=== PATIENT | male | born 1965 | race Hispanic/Latino ===

== ENCOUNTER 2021-07-01 07:59 | Emergency (ER) | payer SELFPAY ==
[2021-07-01] MEDS ORDERED: Ketorolac Tromethamine 30 MG/ML VIAL ONE (08:30)
[2021-07-01] MEDS ORDERED: Acetaminophen 500 MG TAB ONE (08:30)
[2021-07-01 09:09] LABS: #Lymphocytes 0.7 thou/uL (1.20-3.40); #Monocytes 0.3 thou/uL (0.11-0.59); #Neutrophils 3.8 thou/uL (1.40-6.50); %Basophils 0.7 % (0.0-1.0); %Eosinophils 0.1 % (0.0-10.0); %Lymphocytes 14.6 % (21.0-51.0); %Monocytes 5.7 % (0.0-10.0); %Neutrophils 78.8 % (42.0-75.0); Hemoglobin 15.6 g/dL (14.0-18.0); Mean Corpuscular Hemoglobin 28.3 pg (27.0-31.0); Mean Corpuscular Volume 85.9 fL (78.0-98.0); Mean Platelet Volume 7.5 fL (7.4-10.4); Platelet Count 151 thou/uL (130-400); RBC Distribution Width 11.4 % (11.5-14.5); Red Blood Cell (RBC) Count 5.51 mill/uL (4.70-6.10); White Blood Cell (WBC) Count 4.9 thou/uL (4.8-10.8)
[2021-07-01 09:30] LABS: ALT (SGPT) 48 U/L (8-55); AST (SGOT) 56 U/L (5-34); Albumin 3.4 g/dL (3.5-5.0); Alkaline Phosphatase 62 U/L (40-110); Anion Gap 13 mmol/L (10-20); BUN (Urea Nitrogen) 14 mg/dL (8.4-25.7); Bilirubin, Total 0.7 mg/dL (0.2-1.2); Calc. Creatinine Clearance 0 mL/min (70-130); Calcium 8.3 mg/dL (7.8-10.44); Carbon Dioxide 24 mmol/L (22-29); Chloride 92 mmol/L (98-107); Globulin 3.7 g/dL (2.4-3.5); Glucose 285 mg/dL (70-105); Lipase 43 U/L (8-78); Potassium 3.4 mmol/L (3.5-5.1); Protein, Total 7.1 g/dL (6.0-8.3); Sodium 126 mmol/L (136-145)
[2021-07-01] MEDS ORDERED: Iopamidol-370 76% 500 ML 1 ML ONE (11:08)
== END 2021-07-01 10:50 | disposition home or self-care (01) ==
LOC: ERS 07:59
DX: U07.1 COVID-19 (principal); J12.82 Pneumonia due to coronavirus disease 2019; E11.65 Type 2 diabetes mellitus with hyperglycemia; E87.1 Hypo-osmolality and hyponatremia; Z87.891 Personal history of nicotine dependence
CPT/HCPCS: 71275; 80053; 83690; 84484; 85025; 93005; 96374; J1885; Q9967

== ENCOUNTER 2021-07-02 23:07 | Inpatient (IN) | payer SELFPAY ==
[2021-07-02] MEDS ORDERED: Ketorolac Tromethamine 30 MG/ML VIAL ONE (23:40)
[2021-07-02] MEDS ORDERED: Acetaminophen 500 MG TAB ONE (23:40)
[2021-07-02 23:54] LABS: #Basophils 0.1 thou/uL (0.0-0.2); #Monocytes 0.2 thou/uL (0.11-0.59); %Basophils 1.5 % (0.0-1.0); %Lymphocytes 18.2 % (21.0-51.0); %Monocytes 4.2 % (0.0-10.0); %Neutrophils 76.1 % (42.0-75.0); Hemoglobin 15.4 g/dL (14.0-18.0); Mean Corpuscular HGB CONC 35.2 g/dL (32.0-36.0); Mean Corpuscular Hemoglobin 29.9 pg (27.0-31.0); Mean Corpuscular Volume 85.2 fL (78.0-98.0); Mean Platelet Volume 7.6 fL (7.4-10.4); Platelet Count 163 thou/uL (130-400); RBC Distribution Width 11.5 % (11.5-14.5); Red Blood Cell (RBC) Count 5.15 mill/uL (4.70-6.10); White Blood Cell (WBC) Count 5.2 thou/uL (4.8-10.8)
[2021-07-03 00:14] LABS: ALT (SGPT) 40 U/L (8-55); AST (SGOT) 63 U/L (5-34); Albumin 3.2 g/dL (3.5-5.0); Alkaline Phosphatase 59 U/L (40-110); Anion Gap 14 mmol/L (10-20); BUN (Urea Nitrogen) 12 mg/dL (8.4-25.7); Bilirubin, Total 0.5 mg/dL (0.2-1.2); CRP (Inflammatory) 15.67 mg/dL (= or < 0.5); Calc. Creatinine Clearance 0 mL/min (70-130); Calcium 7.8 mg/dL (7.8-10.44); Carbon Dioxide 25 mmol/L (22-29); Chloride 90 mmol/L (98-107); Globulin 3.5 g/dL (2.4-3.5); Glucose 281 mg/dL (70-105); Potassium 3.7 mmol/L (3.5-5.1); Protein, Total 6.7 g/dL (6.0-8.3); Sodium 125 mmol/L (136-145)
[2021-07-03] MEDS ORDERED: Bisacodyl 5 MG TAB PO PRN (01:00)
[2021-07-03] MEDS ORDERED: hydrALAZINE 20 MG/ML VIAL SLOW IVP PRN (01:12)
[2021-07-03] MEDS ORDERED: Dextrose 5% in Water 1,000 ML IV PRN (01:12)
[2021-07-03] MEDS ORDERED: Dextrose 50% Abboject 50 ML SYRINGE SLOW IVP PRN (01:12)
[2021-07-03 01:43] LABS: Hemoglobin A1c 12.3 % (4.0-6.0)
[2021-07-03 01:59] LABS: Troponin I Less than 0.010 ng/mL (< 0.028)
[2021-07-03 05:30] LABS: ALT (SGPT) 38 U/L (8-55); AST (SGOT) 61 U/L (5-34); Albumin 3.1 g/dL (3.5-5.0); Alkaline Phosphatase 56 U/L (40-110); Anion Gap 14 mmol/L (10-20); BUN (Urea Nitrogen) 14 mg/dL (8.4-25.7); Bilirubin, Total 0.5 mg/dL (0.2-1.2); Calc. Creatinine Clearance 0 mL/min (70-130); Calcium 7.6 mg/dL (7.8-10.44); Carbon Dioxide 26 mmol/L (22-29); Chloride 90 mmol/L (98-107); Globulin 3.3 g/dL (2.4-3.5); Glucose 250 mg/dL (70-105); Potassium 3.8 mmol/L (3.5-5.1); Protein, Total 6.4 g/dL (6.0-8.3); Sodium 126 mmol/L (136-145)
[2021-07-03 05:35] LABS: Hemoglobin 14.8 g/dL (14.0-18.0); Mean Corpuscular HGB CONC 33.8 g/dL (32.0-36.0); Mean Corpuscular Hemoglobin 28.9 pg (27.0-31.0); Mean Corpuscular Volume 85.4 fL (78.0-98.0); Mean Platelet Volume 7.7 fL (7.4-10.4); Platelet Count 167 thou/uL (130-400); RBC Distribution Width 11.6 % (11.5-14.5); Red Blood Cell (RBC) Count 5.13 mill/uL (4.70-6.10); White Blood Cell (WBC) Count 5.9 thou/uL (4.8-10.8)
[2021-07-03] MEDS: Sodium Chloride 0.9% 1,000 ML IV SCH ×2 (05:43→17:07)
[2021-07-03 06:26] LABS: Band 15 % (5-11); Lymphocytes 28 % (21-51); MDiff Complete? YES; Monocytes 5 % (0-10); Neutrophil 51 % (42-75)
[2021-07-03] MEDS ORDERED: Famotidine 20 MG TAB ONE (08:53)
[2021-07-03] MEDS ORDERED: Enoxaparin Sodium 40 MG/0.4 ML SYRINGE ONE ×2 (08:53→08:54)
[2021-07-03] MEDS ORDERED: Dexamethasone 10 MG/ML VIAL ONE (08:55)
[2021-07-03] MEDS: Dexamethasone 10 MG in Sodium Chloride 0.9% 50 ML IVPB SCH (08:59)
[2021-07-03] MEDS: Famotidine 20 MG TAB PO SCH ×2 (09:00→20:51)
[2021-07-03] MEDS ORDERED: Enoxaparin Sodium 40 MG/0.4 ML SYRINGE SC SCH (09:00)
[2021-07-03] MEDS: metFORMIN 500 MG TAB PO SCH ×2 (09:22→17:07)
[2021-07-03] MEDS: Zinc Sulfate 220 MG CAP PO SCH (09:22)
[2021-07-03 15:57] LABS: Bacteria/HPF None Seen HPF (None Seen); Bilirubin Negative (Negative); Blood, Urine Negative (Negative); Clarity Clear (Clear); Glucose, Urine (Dipstick) Greater than 1000 mg/dL (Negative); Ketone, Urine 40 mg/dL (Negative); Leukocyte Negative Leu/uL (Negative); Nitrite Negative (Negative); Protein, Urine (Dipstick) 50 mg/dL (Neg-Trace); RBC/HPF 0-3 HPF (0-3); Specific Gravity, Urine 1.013 (1.002-1.036); Squamous Epithelial None Seen HPF (0-3); Urobilinogen Normal mg/dL (Less than 2); WBC/HPF 0-3 HPF (0-3); pH, Urine 6.5 (5.0-9.0)
[2021-07-03 16:26] LABS: Creatinine, Urine 57.29 mg/dL (63-166); Sodium, Urine Less than 20 mmol/L (Not Available)
[2021-07-03] MEDS: HumaLOG 300 UNITS/3 ML VIAL SC PRN ×2 (17:08→20:53)
[2021-07-03] MEDS: HYDROcodone/Acetaminophen 5/325 mg Tablet PO PRN (20:51)
[2021-07-04] MEDS: Sodium Chloride 0.9% 1,000 ML IV SCH (06:19)
[2021-07-04] MEDS: HumaLOG 300 UNITS/3 ML VIAL SC PRN ×3 (06:20→16:53)
[2021-07-04 07:29] LABS: Anion Gap 14 mmol/L (10-20); BUN (Urea Nitrogen) 15 mg/dL (8.4-25.7); Calc. Creatinine Clearance 121 mL/min (70-130); Calcium 7.7 mg/dL (7.8-10.44); Carbon Dioxide 25 mmol/L (22-29); Chloride 97 mmol/L (98-107); Glucose 265 mg/dL (70-105); Potassium 4.1 mmol/L (3.5-5.1); Sodium 132 mmol/L (136-145)
[2021-07-04] MEDS: Acetaminophen 325 MG TAB PO PRN (09:33)
[2021-07-04] MEDS: Famotidine 20 MG TAB PO SCH ×2 (09:34→20:53)
[2021-07-04] MEDS: metFORMIN 500 MG TAB PO SCH (09:34)
[2021-07-04] MEDS: Enoxaparin Sodium 40 MG/0.4 ML SYRINGE SC SCH ×2 (09:34→20:53)
[2021-07-04] MEDS: guaiFENesin/DM ER PO SCH ×2 (09:34→20:53)
[2021-07-04] MEDS: Benzonatate 100 MG CAP PO SCH ×3 (09:35→21:05)
[2021-07-04] MEDS: Zinc Sulfate 220 MG CAP PO SCH (09:35)
[2021-07-04] MEDS: Lantus 1000 UNITS/10 ML VIAL SC SCH ×2 (09:47→20:54)
[2021-07-04] MEDS: Dexamethasone 10 MG in Sodium Chloride 0.9% 50 ML IVPB SCH (10:21)
[2021-07-04] MEDS: Albuterol 200 PUFF (6.7GM INHALER) INH SCH (18:12)
[2021-07-04] MEDS: HYDROcodone/Acetaminophen 5/325 mg Tablet PO PRN (21:03)
[2021-07-05] MEDS: Albuterol 200 PUFF (6.7GM INHALER) INH SCH ×4 (01:12→17:32)
[2021-07-05] MEDS: HumaLOG 300 UNITS/3 ML VIAL SC PRN ×3 (06:00→17:07)
[2021-07-05 07:07] LABS: #Lymphocytes 1.1 thou/uL (1.20-3.40); #Monocytes 0.4 thou/uL (0.11-0.59); #Neutrophils 8.8 thou/uL (1.40-6.50); %Basophils 0.1 % (0.0-1.0); %Lymphocytes 10.5 % (21.0-51.0); %Monocytes 4.1 % (0.0-10.0); %Neutrophils 85.3 % (42.0-75.0); Hemoglobin 15.3 g/dL (14.0-18.0); Mean Corpuscular HGB CONC 34.6 g/dL (32.0-36.0); Mean Corpuscular Hemoglobin 29.9 pg (27.0-31.0); Mean Corpuscular Volume 86.3 fL (78.0-98.0); Mean Platelet Volume 7.4 fL (7.4-10.4); Platelet Count 268 thou/uL (130-400); RBC Distribution Width 11.6 % (11.5-14.5); Red Blood Cell (RBC) Count 5.12 mill/uL (4.70-6.10); White Blood Cell (WBC) Count 10.3 thou/uL (4.8-10.8)
[2021-07-05 07:16] LABS: Anion Gap 14 mmol/L (10-20); BUN (Urea Nitrogen) 15 mg/dL (8.4-25.7); Calc. Creatinine Clearance 144 mL/min (70-130); Carbon Dioxide 25 mmol/L (22-29); Chloride 97 mmol/L (98-107); Glucose 200 mg/dL (70-105); Potassium 3.9 mmol/L (3.5-5.1); Sodium 132 mmol/L (136-145)
[2021-07-05] MEDS: Dexamethasone 4 mg/ml Vial SLOW IVP SCH (07:57)
[2021-07-05] MEDS: Zinc Sulfate 220 MG CAP PO SCH (07:58)
[2021-07-05] MEDS: Acetaminophen 325 MG TAB PO PRN (07:58)
[2021-07-05] MEDS: Enoxaparin Sodium 40 MG/0.4 ML SYRINGE SC SCH ×2 (07:58→21:00)
[2021-07-05] MEDS: Famotidine 20 MG TAB PO SCH ×2 (07:59→20:59)
[2021-07-05] MEDS: guaiFENesin/DM ER PO SCH ×2 (07:59→20:59)
[2021-07-05] MEDS: Lantus 1000 UNITS/10 ML VIAL SC SCH ×2 (08:00→21:00)
[2021-07-05] MEDS: Benzonatate 100 MG CAP PO SCH ×3 (08:02→21:12)
[2021-07-05] MEDS ORDERED: BARICITINIB 2 MG TAB PO SCH (09:30)
[2021-07-05] MEDS: HYDROcodone/Acetaminophen 5/325 mg Tablet PO PRN (20:57)
[2021-07-06] MEDS: Albuterol 200 PUFF (6.7GM INHALER) INH SCH ×4 (03:00→20:55)
[2021-07-06] MEDS: HumaLOG 300 UNITS/3 ML VIAL SC PRN ×3 (07:10→17:05)
[2021-07-06] MEDS: BARICITINIB 2 MG TAB PO SCH (08:48)
[2021-07-06] MEDS: Enoxaparin Sodium 40 MG/0.4 ML SYRINGE SC SCH ×2 (08:48→20:54)
[2021-07-06] MEDS: Dexamethasone 4 mg/ml Vial SLOW IVP SCH (08:49)
[2021-07-06] MEDS: Famotidine 20 MG TAB PO SCH ×2 (08:49→20:53)
[2021-07-06] MEDS: Zinc Sulfate 220 MG CAP PO SCH (08:49)
[2021-07-06] MEDS: guaiFENesin/DM ER PO SCH ×2 (08:49→20:54)
[2021-07-06] MEDS: Lantus 1000 UNITS/10 ML VIAL SC SCH ×2 (08:50→20:54)
[2021-07-06] MEDS: Benzonatate 100 MG CAP PO SCH ×3 (11:08→21:08)
[2021-07-07] MEDS: Albuterol 200 PUFF (6.7GM INHALER) INH SCH ×4 (01:55→18:28)
[2021-07-07 05:57] LABS: #Lymphocytes 1.1 thou/uL (1.20-3.40); #Monocytes 0.5 thou/uL (0.11-0.59); #Neutrophils 11.5 thou/uL (1.40-6.50); %Lymphocytes 8.3 % (21.0-51.0); %Monocytes 3.7 % (0.0-10.0); %Neutrophils 87.9 % (42.0-75.0); Hemoglobin 15.6 g/dL (14.0-18.0); Mean Corpuscular HGB CONC 33.8 g/dL (32.0-36.0); Mean Corpuscular Volume 85.8 fL (78.0-98.0); Mean Platelet Volume 7.1 fL (7.4-10.4); Platelet Count 415 thou/uL (130-400); RBC Distribution Width 11.7 % (11.5-14.5); Red Blood Cell (RBC) Count 5.39 mill/uL (4.70-6.10); White Blood Cell (WBC) Count 13.1 thou/uL (4.8-10.8)
[2021-07-07 06:19] LABS: Anion Gap 16 mmol/L (10-20); BUN (Urea Nitrogen) 17 mg/dL (8.4-25.7); Calc. Creatinine Clearance 138 mL/min (70-130); Calcium 8.2 mg/dL (7.8-10.44); Carbon Dioxide 21 mmol/L (22-29); Chloride 99 mmol/L (98-107); Glucose 171 mg/dL (70-105); Potassium 4.1 mmol/L (3.5-5.1); Sodium 132 mmol/L (136-145)
[2021-07-07] MEDS: Famotidine 20 MG TAB PO SCH ×2 (08:50→20:18)
[2021-07-07] MEDS: BARICITINIB 2 MG TAB PO SCH (08:51)
[2021-07-07] MEDS: Benzonatate 100 MG CAP PO SCH ×3 (08:51→20:19)
[2021-07-07] MEDS: guaiFENesin/DM ER PO SCH ×2 (08:52→20:19)
[2021-07-07] MEDS: Dexamethasone 4 mg/ml Vial SLOW IVP SCH (08:52)
[2021-07-07] MEDS: Lantus 1000 UNITS/10 ML VIAL SC SCH ×2 (08:53→20:20)
[2021-07-07] MEDS: Zinc Sulfate 220 MG CAP PO SCH (08:55)
[2021-07-07] MEDS: Enoxaparin Sodium 40 MG/0.4 ML SYRINGE SC SCH ×2 (08:56→20:19)
[2021-07-07 08:59] LABS: Actual Bicarbonate (HCO3a) 22.9 mEq/L (22-28); Base Excess (BEa) 2.5 mEq/L (-2.0 to +3.0); Calcium, Ionized (arterial) 1.07 mmol/L (1.12-1.30); Carboxyhemoglobin (COHb) 0.3 gm% (0.0-3.0); Hemoglobin (Hb) 15.7 g/dL (14.0-18.0); O2 Tension (PaO2), arterial 65.2 mmHg (80.0-100.0); Potassium - ABG Lab 3.54 mmol/L (3.70-5.30)
[2021-07-07 09:04] LABS: ALV-art Gradient 615.675 mmHg (0-20); CO2 Tension 25.7 mmHg (35.0-45.0); Puncture Site RRA; pH, Arterial 7.57 (7.35-7.45)
[2021-07-07] MEDS: Acetaminophen 325 MG TAB PO PRN ×2 (14:42→20:40)
[2021-07-07] MEDS: HYDROcodone/Acetaminophen 5/325 mg Tablet PO PRN (17:33)
[2021-07-07] MEDS: HumaLOG 300 UNITS/3 ML VIAL SC PRN ×2 (17:34→20:28)
[2021-07-08] MEDS ORDERED: Chloraseptic Spray 180 ml Bottle PO PRN (00:05)
[2021-07-08] MEDS: Albuterol 200 PUFF (6.7GM INHALER) INH SCH ×4 (00:15→17:10)
[2021-07-08] MEDS: HYDROcodone/Acetaminophen 5/325 mg Tablet PO PRN (00:16)
[2021-07-08 04:16] LABS: Anion Gap 13 mmol/L (10-20); BUN (Urea Nitrogen) 15 mg/dL (8.4-25.7); Calc. Creatinine Clearance 139 mL/min (70-130); Calcium 8.3 mg/dL (7.8-10.44); Carbon Dioxide 24 mmol/L (22-29); Chloride 98 mmol/L (98-107); Glucose 98 mg/dL (70-105); Sodium 131 mmol/L (136-145)
[2021-07-08 04:34] LABS: #Lymphocytes 1.2 thou/uL (1.20-3.40); #Monocytes 0.1 thou/uL (0.11-0.59); #Neutrophils 9.7 thou/uL (1.40-6.50); %Basophils 0.1 % (0.0-1.0); %Eosinophils 0.2 % (0.0-10.0); %Lymphocytes 10.6 % (21.0-51.0); %Monocytes 1.2 % (0.0-10.0); %Neutrophils 87.9 % (42.0-75.0); Hemoglobin 14.9 g/dL (14.0-18.0); Mean Corpuscular HGB CONC 33.6 g/dL (32.0-36.0); Mean Corpuscular Volume 86.4 fL (78.0-98.0); Mean Platelet Volume 6.8 fL (7.4-10.4); Platelet Count 372 thou/uL (130-400); RBC Distribution Width 11.7 % (11.5-14.5); Red Blood Cell (RBC) Count 5.12 mill/uL (4.70-6.10)
[2021-07-08] MEDS: Famotidine 20 MG TAB PO SCH ×2 (08:49→21:25)
[2021-07-08] MEDS: BARICITINIB 2 MG TAB PO SCH (08:49)
[2021-07-08] MEDS: Zinc Sulfate 220 MG CAP PO SCH (08:49)
[2021-07-08] MEDS: guaiFENesin/DM ER PO SCH ×2 (08:50→21:25)
[2021-07-08] MEDS: Benzonatate 100 MG CAP PO SCH ×3 (08:50→21:25)
[2021-07-08] MEDS: Acetaminophen 325 MG TAB PO PRN ×2 (08:50→16:52)
[2021-07-08] MEDS: Lantus 1000 UNITS/10 ML VIAL SC SCH ×2 (08:54→21:26)
[2021-07-08] MEDS: Enoxaparin Sodium 40 MG/0.4 ML SYRINGE SC SCH ×2 (08:55→21:25)
[2021-07-08] MEDS: Dexamethasone 4 mg/ml Vial SLOW IVP SCH (08:56)
[2021-07-08] MEDS: HumaLOG 300 UNITS/3 ML VIAL SC PRN ×2 (17:10→21:28)
[2021-07-09] MEDS: Albuterol 200 PUFF (6.7GM INHALER) INH SCH ×4 (01:30→19:50)
[2021-07-09] MEDS: Zinc Sulfate 220 MG CAP PO SCH (09:50)
[2021-07-09] MEDS: guaiFENesin/DM ER PO SCH ×2 (09:50→20:39)
[2021-07-09] MEDS: BARICITINIB 2 MG TAB PO SCH (09:50)
[2021-07-09] MEDS: Enoxaparin Sodium 40 MG/0.4 ML SYRINGE SC SCH ×2 (09:50→20:39)
[2021-07-09] MEDS: Dexamethasone 4 mg/ml Vial SLOW IVP SCH (09:50)
[2021-07-09] MEDS: Famotidine 20 MG TAB PO SCH ×2 (09:50→20:38)
[2021-07-09] MEDS: Benzonatate 100 MG CAP PO SCH ×3 (09:50→20:38)
[2021-07-09] MEDS: Lantus 1000 UNITS/10 ML VIAL SC SCH ×2 (09:51→20:41)
[2021-07-09] MEDS: HYDROcodone/Acetaminophen 5/325 mg Tablet PO PRN ×2 (10:17→15:25)
[2021-07-09] MEDS: HumaLOG 300 UNITS/3 ML VIAL SC PRN ×2 (18:12→20:42)
[2021-07-10] MEDS: Albuterol 200 PUFF (6.7GM INHALER) INH SCH ×4 (01:10→19:50)
[2021-07-10 04:20] LABS: #Lymphocytes 0.8 thou/uL (1.20-3.40); #Monocytes 0.4 thou/uL (0.11-0.59); #Neutrophils 10.8 thou/uL (1.40-6.50); %Basophils 0.1 % (0.0-1.0); %Eosinophils 0.1 % (0.0-10.0); %Lymphocytes 6.6 % (21.0-51.0); %Monocytes 2.9 % (0.0-10.0); %Neutrophils 90.3 % (42.0-75.0); Hemoglobin 14.8 g/dL (14.0-18.0); Mean Corpuscular HGB CONC 33.9 g/dL (32.0-36.0); Mean Corpuscular Hemoglobin 29.4 pg (27.0-31.0); Mean Corpuscular Volume 86.6 fL (78.0-98.0); Mean Platelet Volume 6.9 fL (7.4-10.4); Platelet Count 395 thou/uL (130-400); RBC Distribution Width 11.8 % (11.5-14.5); Red Blood Cell (RBC) Count 5.04 mill/uL (4.70-6.10)
[2021-07-10 04:42] LABS: ALT (SGPT) 26 U/L (8-55); AST (SGOT) 25 U/L (5-34); Albumin 2.9 g/dL (3.5-5.0); Alkaline Phosphatase 85 U/L (40-110); Anion Gap 16 mmol/L (10-20); BUN (Urea Nitrogen) 19 mg/dL (8.4-25.7); Bilirubin, Total 0.6 mg/dL (0.2-1.2); Calc. Creatinine Clearance 121 mL/min (70-130); Calcium 8.3 mg/dL (7.8-10.44); Carbon Dioxide 22 mmol/L (22-29); Chloride 95 mmol/L (98-107); Globulin 3.8 g/dL (2.4-3.5); Glucose 240 mg/dL (70-105); Potassium 4.5 mmol/L (3.5-5.1); Protein, Total 6.7 g/dL (6.0-8.3); Sodium 128 mmol/L (136-145)
[2021-07-10] MEDS: HumaLOG 300 UNITS/3 ML VIAL SC PRN ×4 (06:03→20:56)
[2021-07-10] MEDS: HYDROcodone/Acetaminophen 5/325 mg Tablet PO PRN ×3 (06:12→22:31)
[2021-07-10] MEDS: BARICITINIB 2 MG TAB PO SCH (09:13)
[2021-07-10] MEDS: Dexamethasone 4 mg/ml Vial SLOW IVP SCH (09:13)
[2021-07-10] MEDS: Enoxaparin Sodium 40 MG/0.4 ML SYRINGE SC SCH ×2 (09:13→20:36)
[2021-07-10] MEDS: Zinc Sulfate 220 MG CAP PO SCH (09:14)
[2021-07-10] MEDS: Benzonatate 100 MG CAP PO SCH ×2 (09:14→14:29)
[2021-07-10] MEDS: Famotidine 20 MG TAB PO SCH ×2 (09:14→20:36)
[2021-07-10] MEDS: Lantus 1000 UNITS/10 ML VIAL SC SCH ×2 (09:14→20:40)
[2021-07-10] MEDS: guaiFENesin/DM ER PO SCH (09:15)
[2021-07-10] MEDS ORDERED: Morphine IR 10 MG/5 ML UDCUP PO PRN (17:42)
[2021-07-10] MEDS: guaiFENesin/Codeine 200 mg/20 mg 10 ml Cup PO PRN (20:36)
[2021-07-11] MEDS: Albuterol 200 PUFF (6.7GM INHALER) INH SCH ×4 (01:00→20:00)
[2021-07-11 04:04] LABS: #Monocytes 0.4 thou/uL (0.11-0.59); #Neutrophils 15.7 thou/uL (1.40-6.50); %Eosinophils 0.1 % (0.0-10.0); %Lymphocytes 5.6 % (21.0-51.0); %Monocytes 2.3 % (0.0-10.0); Hemoglobin 14.6 g/dL (14.0-18.0); Mean Corpuscular HGB CONC 33.2 g/dL (32.0-36.0); Mean Corpuscular Hemoglobin 28.8 pg (27.0-31.0); Mean Corpuscular Volume 86.6 fL (78.0-98.0); Mean Platelet Volume 6.8 fL (7.4-10.4); Platelet Count 420 thou/uL (130-400); RBC Distribution Width 11.8 % (11.5-14.5); Red Blood Cell (RBC) Count 5.08 mill/uL (4.70-6.10)
[2021-07-11 04:28] LABS: ALT (SGPT) 24 U/L (8-55); AST (SGOT) 24 U/L (5-34); Albumin 2.9 g/dL (3.5-5.0); Alkaline Phosphatase 98 U/L (40-110); Anion Gap 13 mmol/L (10-20); BUN (Urea Nitrogen) 16 mg/dL (8.4-25.7); Bilirubin, Total 0.5 mg/dL (0.2-1.2); Calc. Creatinine Clearance 129 mL/min (70-130); Calcium 8.4 mg/dL (7.8-10.44); Carbon Dioxide 25 mmol/L (22-29); Chloride 94 mmol/L (98-107); Globulin 3.8 g/dL (2.4-3.5); Glucose 226 mg/dL (70-105); Potassium 4.5 mmol/L (3.5-5.1); Protein, Total 6.7 g/dL (6.0-8.3); Sodium 127 mmol/L (136-145)
[2021-07-11] MEDS: HYDROcodone/Acetaminophen 5/325 mg Tablet PO PRN ×2 (05:14→15:13)
[2021-07-11] MEDS: HumaLOG 300 UNITS/3 ML VIAL SC PRN ×3 (06:13→22:21)
[2021-07-11] MEDS ORDERED: Metoprolol Tartrate 5 MG/5 ML VIAL ONE (10:26)
[2021-07-11 10:36] LABS: Actual Bicarbonate (HCO3a) 25.5 mEq/L (22-28); Base Excess (BEa) 3.3 mEq/L (-2.0 to +3.0); CO2 Tension 32.2 mmHg (35.0-45.0); Calcium, Ionized (arterial) 1.12 mmol/L (1.12-1.30); Carboxyhemoglobin (COHb) 0.3 gm% (0.0-3.0); Hemoglobin (Hb) 16.1 g/dL (14.0-18.0); Potassium - ABG Lab 3.77 mmol/L (3.70-5.30); pH, Arterial 7.52 (7.35-7.45)
[2021-07-11 10:39] LABS: O2 Tension (PaO2), arterial 41.1 mmHg (80.0-100.0); Puncture Site RRA
[2021-07-11] MEDS: BARICITINIB 2 MG TAB PO SCH (10:50)
[2021-07-11] MEDS: Dexamethasone 4 mg/ml Vial SLOW IVP SCH (10:50)
[2021-07-11] MEDS: Zinc Sulfate 220 MG CAP PO SCH (10:50)
[2021-07-11] MEDS: Famotidine 20 MG TAB PO SCH ×2 (10:50→22:18)
[2021-07-11] MEDS: Lantus 1000 UNITS/10 ML VIAL SC SCH (10:51)
[2021-07-11] MEDS: Enoxaparin Sodium 40 MG/0.4 ML SYRINGE SC SCH ×2 (10:51→22:17)
[2021-07-11] MEDS: Acetaminophen 325 MG TAB PO PRN (11:27)
[2021-07-11] MEDS ORDERED: Piperacillin/Tazobactam 3.375 GM in Sodium Chloride 0.9% 100 ML IVPB SCH ×2 (11:45→13:15)
[2021-07-11] MEDS ORDERED: Metoprolol Tartrate 25 MG TAB PO SCH (12:00)
[2021-07-11] MEDS: Acetaminophen 325 MG TAB PO SCH ×2 (13:25→18:13)
[2021-07-11] MEDS ORDERED: Vancomycin 1.5 GRAM/300 ML BAG 1.5 GM in Premix Bag 1 BAG IVPB SCH (14:00)
[2021-07-11] MEDS: Piperacillin/Tazobactam 3.375 GM in Sodium Chloride 0.9% 100 ML IVPB SCH (18:14)
[2021-07-11 19:11] LABS: Bacteria/HPF None Seen HPF (None Seen); Bilirubin Negative (Negative); Blood, Urine Negative (Negative); Clarity Clear (Clear); Glucose, Urine (Dipstick) Greater than 1000 mg/dL (Negative); Ketone, Urine Trace mg/dL (Negative); Leukocyte Negative Leu/uL (Negative); Nitrite Negative (Negative); Protein, Urine (Dipstick) 20 mg/dL (Neg-Trace); RBC/HPF None Seen HPF (0-3); Specific Gravity, Urine 1.024 (1.002-1.036); Squamous Epithelial None Seen HPF (0-3); Urobilinogen Normal mg/dL (Less than 2); WBC/HPF 0-3 HPF (0-3)
[2021-07-11] MEDS ORDERED: Lantus 1000 UNITS/10 ML VIAL SC SCH (21:00)
[2021-07-11] MEDS: Metoprolol Tartrate 25 MG TAB PO SCH (22:18)
[2021-07-12] MEDS: Acetaminophen 325 MG TAB PO SCH ×4 (00:47→18:06)
[2021-07-12] MEDS: Albuterol 200 PUFF (6.7GM INHALER) INH SCH ×3 (00:57→19:30)
[2021-07-12] MEDS: Piperacillin/Tazobactam 3.375 GM in Sodium Chloride 0.9% 100 ML IVPB SCH ×3 (01:15→18:05)
[2021-07-12] MEDS: Vancomycin HCl 1.5 GM in Sodium Chloride 0.9% 250 ML 300 ML IVPB SCH ×2 (01:15→14:43)
[2021-07-12 04:35] LABS: #Lymphocytes 0.8 thou/uL (1.20-3.40); #Monocytes 0.3 thou/uL (0.11-0.59); #Neutrophils 16.9 thou/uL (1.40-6.50); %Eosinophils 0.1 % (0.0-10.0); %Lymphocytes 4.3 % (21.0-51.0); %Monocytes 1.6 % (0.0-10.0); %Neutrophils 93.9 % (42.0-75.0); Hemoglobin 14.6 g/dL (14.0-18.0); Mean Corpuscular HGB CONC 33.2 g/dL (32.0-36.0); Mean Corpuscular Hemoglobin 29.1 pg (27.0-31.0); Mean Corpuscular Volume 87.5 fL (78.0-98.0); Mean Platelet Volume 6.7 fL (7.4-10.4); Platelet Count 344 thou/uL (130-400); RBC Distribution Width 11.9 % (11.5-14.5); Red Blood Cell (RBC) Count 5.02 mill/uL (4.70-6.10)
[2021-07-12 04:53] LABS: ALT (SGPT) 26 U/L (8-55); AST (SGOT) 27 U/L (5-34); Albumin 2.7 g/dL (3.5-5.0); Alkaline Phosphatase 111 U/L (40-110); Anion Gap 17 mmol/L (10-20); BUN (Urea Nitrogen) 20 mg/dL (8.4-25.7); Bilirubin, Total 0.4 mg/dL (0.2-1.2); Calc. Creatinine Clearance 121 mL/min (70-130); Calcium 7.9 mg/dL (7.8-10.44); Carbon Dioxide 20 mmol/L (22-29); Chloride 96 mmol/L (98-107); Globulin 3.6 g/dL (2.4-3.5); Glucose 307 mg/dL (70-105); Potassium 4.8 mmol/L (3.5-5.1); Protein, Total 6.3 g/dL (6.0-8.3); Sodium 128 mmol/L (136-145)
[2021-07-12] MEDS: HYDROcodone/Acetaminophen 5/325 mg Tablet PO PRN (05:09)
[2021-07-12] MEDS: HumaLOG 300 UNITS/3 ML VIAL SC PRN ×4 (06:02→20:53)
[2021-07-12] MEDS ORDERED: Lantus 1000 UNITS/10 ML VIAL SC SCH (09:00)
[2021-07-12] MEDS: Enoxaparin Sodium 40 MG/0.4 ML SYRINGE SC SCH ×2 (10:02→20:29)
[2021-07-12] MEDS: Metoprolol Tartrate 25 MG TAB PO SCH ×2 (10:02→20:29)
[2021-07-12] MEDS: BARICITINIB 2 MG TAB PO SCH (10:02)
[2021-07-12] MEDS: Zinc Sulfate 220 MG CAP PO SCH (10:02)
[2021-07-12] MEDS: Famotidine 20 MG TAB PO SCH ×2 (10:03→20:29)
[2021-07-12] MEDS: Dexamethasone 4 mg/ml Vial SLOW IVP SCH (10:03)
[2021-07-12] MEDS ORDERED: Vancomycin 1.5 GRAM/300 ML BAG 1.5 GM in Premix Bag 1 BAG IVPB SCH (16:00)
[2021-07-12] MEDS: Lantus 1000 UNITS/10 ML VIAL SC SCH (20:52)
[2021-07-12] MEDS: guaiFENesin/Codeine 200 mg/20 mg 10 ml Cup PO PRN (20:56)
[2021-07-13] MEDS: Acetaminophen 325 MG TAB PO SCH ×3 (00:09→10:52)
[2021-07-13] MEDS: Albuterol 200 PUFF (6.7GM INHALER) INH SCH ×4 (00:15→19:30)
[2021-07-13] MEDS ORDERED: Vancomycin 1.5 GRAM/300 ML BAG 1.5 GM in Premix Bag 1 BAG IVPB SCH (02:00)
[2021-07-13 02:11] LABS: Vancomycin, Trough 6.4 ug/mL
[2021-07-13] MEDS: Piperacillin/Tazobactam 3.375 GM in Sodium Chloride 0.9% 100 ML IVPB SCH ×3 (02:32→17:47)
[2021-07-13] MEDS: Vancomycin 1.5 GRAM/300 ML BAG 1.5 GM in Premix Bag 1 BAG IVPB SCH ×3 (03:31→20:33)
[2021-07-13] MEDS: guaiFENesin/Codeine 200 mg/20 mg 10 ml Cup PO PRN (03:51)
[2021-07-13 04:34] LABS: ALT (SGPT) 24 U/L (8-55); AST (SGOT) 27 U/L (5-34); Albumin 2.8 g/dL (3.5-5.0); Alkaline Phosphatase 118 U/L (40-110); Anion Gap 14 mmol/L (10-20); BUN (Urea Nitrogen) 18 mg/dL (8.4-25.7); Bilirubin, Total 0.5 mg/dL (0.2-1.2); Calc. Creatinine Clearance 133 mL/min (70-130); Calcium 8.2 mg/dL (7.8-10.44); Carbon Dioxide 26 mmol/L (22-29); Chloride 97 mmol/L (98-107); Globulin 3.6 g/dL (2.4-3.5); Glucose 185 mg/dL (70-105); Potassium 4.5 mmol/L (3.5-5.1); Protein, Total 6.4 g/dL (6.0-8.3); Sodium 132 mmol/L (136-145)
[2021-07-13 04:42] LABS: Lymphocytes 21 % (21-51); MDiff Complete? YES; Mean Corpuscular HGB CONC 32.3 g/dL (32.0-36.0); Mean Corpuscular Hemoglobin 28.4 pg (27.0-31.0); Mean Platelet Volume 7.1 fL (7.4-10.4); Monocytes 2 % (0-10); Neutrophil 77 % (42-75); Platelet Count 359 thou/uL (130-400); Platelet Morphology Comment Appears Adequate; RBC Distribution Width 12.1 % (11.5-14.5); RBC Morphology Normal; Red Blood Cell (RBC) Count 5.27 mill/uL (4.70-6.10); White Blood Cell (WBC) Count 23.5 thou/uL (4.8-10.8)
[2021-07-13] MEDS: HumaLOG 300 UNITS/3 ML VIAL SC PRN ×3 (05:59→20:45)
[2021-07-13] MEDS: Dexamethasone 4 mg/ml Vial SLOW IVP SCH (10:42)
[2021-07-13] MEDS: BARICITINIB 2 MG TAB PO SCH (10:42)
[2021-07-13] MEDS: Lantus 1000 UNITS/10 ML VIAL SC SCH ×2 (10:43→20:44)
[2021-07-13] MEDS: Famotidine 20 MG TAB PO SCH ×2 (10:43→20:32)
[2021-07-13] MEDS: Zinc Sulfate 220 MG CAP PO SCH (10:44)
[2021-07-13] MEDS ORDERED: Metoprolol Tartrate 25 MG TAB PO SCH (10:45)
[2021-07-13] MEDS: guaiFENesin/Codeine 200 mg/20 mg 10 ml Cup PO SCH ×2 (10:53→17:47)
[2021-07-13] MEDS: Enoxaparin Sodium 40 MG/0.4 ML SYRINGE SC SCH (10:54)
[2021-07-13] MEDS: Metoprolol Tartrate 25 MG TAB PO SCH ×2 (10:54→20:32)
[2021-07-13] MEDS: Enoxaparin Sodium 80 MG/0.8 ML SYRINGE SC SCH (20:32)
[2021-07-14] MEDS: guaiFENesin/Codeine 200 mg/20 mg 10 ml Cup PO SCH ×4 (00:16→17:34)
[2021-07-14] MEDS: Albuterol 200 PUFF (6.7GM INHALER) INH SCH ×4 (00:31→18:28)
[2021-07-14] MEDS: Piperacillin/Tazobactam 3.375 GM in Sodium Chloride 0.9% 100 ML IVPB SCH ×3 (01:53→17:35)
[2021-07-14 04:00] LABS: #Lymphocytes 0.9 thou/uL (1.20-3.40); #Monocytes 0.4 thou/uL (0.11-0.59); #Neutrophils 19.4 thou/uL (1.40-6.50); %Basophils 0.2 % (0.0-1.0); %Eosinophils 0.1 % (0.0-10.0); %Lymphocytes 4.5 % (21.0-51.0); %Monocytes 1.9 % (0.0-10.0); %Neutrophils 93.4 % (42.0-75.0); Hemoglobin 15.3 g/dL (14.0-18.0); Mean Corpuscular HGB CONC 33.8 g/dL (32.0-36.0); Mean Corpuscular Volume 88.8 fL (78.0-98.0); Mean Platelet Volume 6.9 fL (7.4-10.4); Platelet Count 387 thou/uL (130-400); RBC Distribution Width 12.3 % (11.5-14.5); Red Blood Cell (RBC) Count 5.09 mill/uL (4.70-6.10); White Blood Cell (WBC) Count 20.8 thou/uL (4.8-10.8)
[2021-07-14 04:15] LABS: Vancomycin, Trough 13.9 ug/mL
[2021-07-14 04:21] LABS: ALT (SGPT) 23 U/L (8-55); AST (SGOT) 24 U/L (5-34); Albumin 2.8 g/dL (3.5-5.0); Alkaline Phosphatase 106 U/L (40-110); Anion Gap 11 mmol/L (10-20); BUN (Urea Nitrogen) 18 mg/dL (8.4-25.7); Bilirubin, Total 0.5 mg/dL (0.2-1.2); Calc. Creatinine Clearance 140 mL/min (70-130); Calcium 8.2 mg/dL (7.8-10.44); Carbon Dioxide 25 mmol/L (22-29); Chloride 100 mmol/L (98-107); Globulin 3.6 g/dL (2.4-3.5); Glucose 150 mg/dL (70-105); Potassium 4.3 mmol/L (3.5-5.1); Protein, Total 6.4 g/dL (6.0-8.3); Sodium 132 mmol/L (136-145)
[2021-07-14] MEDS: Vancomycin 1.5 GRAM/300 ML BAG 1.5 GM in Premix Bag 1 BAG IVPB SCH ×3 (04:28→20:46)
[2021-07-14] MEDS: HYDROcodone/Acetaminophen 5/325 mg Tablet PO PRN (04:40)
[2021-07-14] MEDS: HumaLOG 300 UNITS/3 ML VIAL SC PRN ×3 (06:19→20:57)
[2021-07-14] MEDS: Dexamethasone 4 mg/ml Vial SLOW IVP SCH (09:55)
[2021-07-14] MEDS: Enoxaparin Sodium 80 MG/0.8 ML SYRINGE SC SCH ×2 (09:55→20:46)
[2021-07-14] MEDS: BARICITINIB 2 MG TAB PO SCH (09:55)
[2021-07-14] MEDS: Famotidine 20 MG TAB PO SCH ×2 (09:56→20:47)
[2021-07-14] MEDS: Metoprolol Tartrate 25 MG TAB PO SCH ×2 (09:57→20:47)
[2021-07-14] MEDS: Zinc Sulfate 220 MG CAP PO SCH (09:57)
[2021-07-14] MEDS: Lantus 1000 UNITS/10 ML VIAL SC SCH ×2 (09:57→20:57)
[2021-07-14] MEDS ORDERED: Transdermal Patch Removal TOP SCH (21:00)
[2021-07-15] MEDS: guaiFENesin/Codeine 200 mg/20 mg 10 ml Cup PO SCH ×3 (01:26→12:50)
[2021-07-15] MEDS: Piperacillin/Tazobactam 3.375 GM in Sodium Chloride 0.9% 100 ML IVPB SCH ×3 (01:26→17:30)
[2021-07-15] MEDS: Albuterol 200 PUFF (6.7GM INHALER) INH SCH ×4 (01:33→18:42)
[2021-07-15] MEDS: Vancomycin 1.5 GRAM/300 ML BAG 1.5 GM in Premix Bag 1 BAG IVPB SCH ×3 (04:08→20:00)
[2021-07-15 04:22] LABS: ALT (SGPT) 30 U/L (8-55); AST (SGOT) 29 U/L (5-34); Albumin 2.9 g/dL (3.5-5.0); Alkaline Phosphatase 112 U/L (40-110); Anion Gap 13 mmol/L (10-20); BUN (Urea Nitrogen) 16 mg/dL (8.4-25.7); Bilirubin, Total 0.7 mg/dL (0.2-1.2); Calc. Creatinine Clearance 146 mL/min (70-130); Calcium 8.3 mg/dL (7.8-10.44); Carbon Dioxide 25 mmol/L (22-29); Chloride 100 mmol/L (98-107); Globulin 3.7 g/dL (2.4-3.5); Glucose 99 mg/dL (70-105); Potassium 4.2 mmol/L (3.5-5.1); Protein, Total 6.6 g/dL (6.0-8.3); Sodium 134 mmol/L (136-145)
[2021-07-15 04:26] LABS: Vancomycin, Trough 15.3 ug/mL
[2021-07-15 05:10] LABS: #Lymphocytes 1.4 thou/uL (1.20-3.40); #Monocytes 0.6 thou/uL (0.11-0.59); #Neutrophils 18.8 thou/uL (1.40-6.50); %Basophils 0.1 % (0.0-1.0); %Eosinophils 0.1 % (0.0-10.0); %Lymphocytes 6.7 % (21.0-51.0); %Neutrophils 90.1 % (42.0-75.0); Hemoglobin 15.1 g/dL (14.0-18.0); Mean Corpuscular HGB CONC 32.3 g/dL (32.0-36.0); Mean Corpuscular Hemoglobin 28.7 pg (27.0-31.0); Mean Corpuscular Volume 88.7 fL (78.0-98.0); Mean Platelet Volume 6.9 fL (7.4-10.4); Platelet Count 456 thou/uL (130-400); RBC Distribution Width 12.3 % (11.5-14.5); Red Blood Cell (RBC) Count 5.25 mill/uL (4.70-6.10); White Blood Cell (WBC) Count 20.9 thou/uL (4.8-10.8)
[2021-07-15 05:11] LABS: Platelet Morphology Comment Appears Increased
[2021-07-15] MEDS: Dexamethasone 4 mg/ml Vial SLOW IVP SCH (09:10)
[2021-07-15] MEDS: HYDROcodone/Acetaminophen 5/325 mg Tablet PO PRN (09:10)
[2021-07-15] MEDS: BARICITINIB 2 MG TAB PO SCH (09:10)
[2021-07-15] MEDS: Famotidine 20 MG TAB PO SCH ×2 (09:11→20:04)
[2021-07-15] MEDS: Enoxaparin Sodium 80 MG/0.8 ML SYRINGE SC SCH ×2 (09:11→20:04)
[2021-07-15] MEDS: Metoprolol Tartrate 25 MG TAB PO SCH ×2 (09:11→20:04)
[2021-07-15] MEDS: Zinc Sulfate 220 MG CAP PO SCH (09:11)
[2021-07-15] MEDS: Lidocaine 5% Patch TD SCH (09:12)
[2021-07-15] MEDS: Lantus 1000 UNITS/10 ML VIAL SC SCH ×2 (09:12→20:11)
[2021-07-15] MEDS: HumaLOG 300 UNITS/3 ML VIAL SC PRN ×3 (12:46→20:11)
[2021-07-15] MEDS: Benzonatate 100 MG CAP PO PRN (20:05)
[2021-07-16] MEDS: guaiFENesin/Codeine 200 mg/20 mg 10 ml Cup PO PRN ×2 (00:53→20:07)
[2021-07-16] MEDS: Albuterol 200 PUFF (6.7GM INHALER) INH SCH ×4 (00:59→19:30)
[2021-07-16] MEDS: Piperacillin/Tazobactam 3.375 GM in Sodium Chloride 0.9% 100 ML IVPB SCH ×3 (02:47→18:34)
[2021-07-16 04:30] LABS: Vancomycin, Trough 15.4 ug/mL
[2021-07-16] MEDS: Vancomycin 1.5 GRAM/300 ML BAG 1.5 GM in Premix Bag 1 BAG IVPB SCH ×3 (04:37→20:17)
[2021-07-16] MEDS: BARICITINIB 2 MG TAB PO SCH (08:22)
[2021-07-16] MEDS: Dexamethasone 4 mg/ml Vial SLOW IVP SCH (08:22)
[2021-07-16] MEDS: Famotidine 20 MG TAB PO SCH ×2 (08:23→20:08)
[2021-07-16] MEDS: Lidocaine 5% Patch TD SCH (08:23)
[2021-07-16] MEDS: Enoxaparin Sodium 80 MG/0.8 ML SYRINGE SC SCH ×2 (08:23→20:18)
[2021-07-16] MEDS: Zinc Sulfate 220 MG CAP PO SCH (08:24)
[2021-07-16] MEDS: Metoprolol Tartrate 25 MG TAB PO SCH ×2 (08:26→20:08)
[2021-07-16] MEDS: Lantus 1000 UNITS/10 ML VIAL SC SCH ×2 (08:27→20:22)
[2021-07-16] MEDS: Acetaminophen 325 MG TAB PO PRN (08:33)
[2021-07-16] MEDS: HumaLOG 300 UNITS/3 ML VIAL SC PRN ×2 (18:34→20:24)
[2021-07-17] MEDS: Benzonatate 100 MG CAP PO PRN (01:21)
[2021-07-17] MEDS: Piperacillin/Tazobactam 3.375 GM in Sodium Chloride 0.9% 100 ML IVPB SCH ×3 (01:30→17:57)
[2021-07-17] MEDS: Albuterol 200 PUFF (6.7GM INHALER) INH SCH ×4 (01:30→20:34)
[2021-07-17] MEDS: guaiFENesin/Codeine 200 mg/20 mg 10 ml Cup PO PRN ×3 (02:31→22:39)
[2021-07-17 03:37] LABS: Vancomycin, Trough 19.2 ug/mL
[2021-07-17] MEDS: Vancomycin 1.5 GRAM/300 ML BAG 1.5 GM in Premix Bag 1 BAG IVPB SCH ×3 (03:57→20:35)
[2021-07-17] MEDS: HYDROcodone/Acetaminophen 5/325 mg Tablet PO PRN (06:09)
[2021-07-17] MEDS: BARICITINIB 2 MG TAB PO SCH (09:33)
[2021-07-17] MEDS: Dexamethasone 4 mg/ml Vial SLOW IVP SCH (09:34)
[2021-07-17] MEDS: Enoxaparin Sodium 80 MG/0.8 ML SYRINGE SC SCH ×2 (09:34→20:39)
[2021-07-17] MEDS: Lantus 1000 UNITS/10 ML VIAL SC SCH ×2 (09:34→20:48)
[2021-07-17] MEDS: Famotidine 20 MG TAB PO SCH ×2 (09:34→20:40)
[2021-07-17] MEDS: Metoprolol Tartrate 25 MG TAB PO SCH ×2 (09:35→20:40)
[2021-07-17] MEDS: Zinc Sulfate 220 MG CAP PO SCH (09:35)
[2021-07-17] MEDS: Lidocaine 5% Patch TD SCH (09:35)
[2021-07-17] MEDS: Acetaminophen 325 MG TAB PO PRN (15:24)
[2021-07-17] MEDS: HumaLOG 300 UNITS/3 ML VIAL SC PRN (20:48)
[2021-07-18] MEDS: Piperacillin/Tazobactam 3.375 GM in Sodium Chloride 0.9% 100 ML IVPB SCH ×3 (02:35→17:52)
[2021-07-18] MEDS: Albuterol 200 PUFF (6.7GM INHALER) INH SCH ×5 (03:00→21:53)
[2021-07-18 04:40] LABS: #Lymphocytes 1.6 thou/uL (1.20-3.40); #Monocytes 0.7 thou/uL (0.11-0.59); #Neutrophils 12.8 thou/uL (1.40-6.50); %Basophils 0.3 % (0.0-1.0); %Eosinophils 0.2 % (0.0-10.0); %Lymphocytes 10.6 % (21.0-51.0); %Monocytes 4.4 % (0.0-10.0); %Neutrophils 84.5 % (42.0-75.0); Hemoglobin 15.7 g/dL (14.0-18.0); Mean Corpuscular HGB CONC 31.3 g/dL (32.0-36.0); Mean Corpuscular Hemoglobin 28.2 pg (27.0-31.0); Mean Corpuscular Volume 90.1 fL (78.0-98.0); Mean Platelet Volume 6.7 fL (7.4-10.4); Platelet Count 493 thou/uL (130-400); RBC Distribution Width 12.8 % (11.5-14.5); Red Blood Cell (RBC) Count 5.57 mill/uL (4.70-6.10); White Blood Cell (WBC) Count 15.2 thou/uL (4.8-10.8)
[2021-07-18 04:45] LABS: Anion Gap 13 mmol/L (10-20); BUN (Urea Nitrogen) 17 mg/dL (8.4-25.7); Calc. Creatinine Clearance 141 mL/min (70-130); Calcium 8.6 mg/dL (7.8-10.44); Carbon Dioxide 24 mmol/L (22-29); Chloride 100 mmol/L (98-107); Glucose 133 mg/dL (70-105); Potassium 4.3 mmol/L (3.5-5.1); Sodium 133 mmol/L (136-145)
[2021-07-18] MEDS: Vancomycin 1.5 GRAM/300 ML BAG 1.5 GM in Premix Bag 1 BAG IVPB SCH ×3 (04:51→21:10)
[2021-07-18] MEDS: guaiFENesin/Codeine 200 mg/20 mg 10 ml Cup PO PRN ×3 (04:56→23:35)
[2021-07-18] MEDS: BARICITINIB 2 MG TAB PO SCH (08:00)
[2021-07-18] MEDS: HYDROcodone/Acetaminophen 5/325 mg Tablet PO PRN ×2 (08:01→15:45)
[2021-07-18] MEDS: Dexamethasone 4 mg/ml Vial SLOW IVP SCH (08:01)
[2021-07-18] MEDS: Enoxaparin Sodium 80 MG/0.8 ML SYRINGE SC SCH (08:02)
[2021-07-18] MEDS: Famotidine 20 MG TAB PO SCH ×2 (08:02→22:17)
[2021-07-18] MEDS: Zinc Sulfate 220 MG CAP PO SCH (08:02)
[2021-07-18] MEDS: Lantus 1000 UNITS/10 ML VIAL SC SCH ×2 (08:02→22:16)
[2021-07-18] MEDS: Metoprolol Tartrate 25 MG TAB PO SCH ×2 (08:02→22:22)
[2021-07-18] MEDS: Lidocaine 5% Patch TD SCH (08:02)
[2021-07-18] MEDS ORDERED: Metoprolol Tartrate 25 MG TAB PO SCH (10:00)
[2021-07-18] MEDS: Benzonatate 100 MG CAP PO PRN (10:31)
[2021-07-18] MEDS: HumaLOG 300 UNITS/3 ML VIAL SC PRN (17:52)
[2021-07-19] MEDS: Piperacillin/Tazobactam 3.375 GM in Sodium Chloride 0.9% 100 ML IVPB SCH ×2 (01:51→09:45)
[2021-07-19] MEDS: Vancomycin 1.5 GRAM/300 ML BAG 1.5 GM in Premix Bag 1 BAG IVPB SCH (04:06)
[2021-07-19] MEDS: HYDROcodone/Acetaminophen 5/325 mg Tablet PO PRN ×3 (04:18→20:55)
[2021-07-19] MEDS: Albuterol 200 PUFF (6.7GM INHALER) INH SCH ×3 (07:15→20:57)
[2021-07-19] MEDS: Dexamethasone 4 mg/ml Vial SLOW IVP SCH (09:43)
[2021-07-19] MEDS: Metoprolol Tartrate 25 MG TAB PO SCH ×2 (09:44→20:55)
[2021-07-19] MEDS: Enoxaparin Sodium 40 MG/0.4 ML SYRINGE SC SCH (09:44)
[2021-07-19] MEDS: Famotidine 20 MG TAB PO SCH ×2 (09:44→20:55)
[2021-07-19] MEDS: Lidocaine 5% Patch TD SCH (09:44)
[2021-07-19] MEDS: Zinc Sulfate 220 MG CAP PO SCH (09:45)
[2021-07-19] MEDS: Acetaminophen 325 MG TAB PO PRN (09:45)
[2021-07-19] MEDS: Lantus 1000 UNITS/10 ML VIAL SC SCH ×2 (09:51→20:58)
[2021-07-19] MEDS: guaiFENesin/Codeine 200 mg/20 mg 10 ml Cup PO PRN (13:29)
[2021-07-19] MEDS: HumaLOG 300 UNITS/3 ML VIAL SC PRN (17:49)
[2021-07-19] MEDS: Polyethylene Glycol 3350 17 GM Packet PO SCH (20:56)
[2021-07-20] MEDS: Albuterol 200 PUFF (6.7GM INHALER) INH SCH ×4 (02:33→21:21)
[2021-07-20 04:43] LABS: Anion Gap 13 mmol/L (10-20); BUN (Urea Nitrogen) 23 mg/dL (8.4-25.7); Calc. Creatinine Clearance 152 mL/min (70-130); Calcium 8.8 mg/dL (7.8-10.44); Carbon Dioxide 24 mmol/L (22-29); Chloride 102 mmol/L (98-107); Glucose 79 mg/dL (70-105); Potassium 3.9 mmol/L (3.5-5.1); Sodium 135 mmol/L (136-145)
[2021-07-20 04:47] LABS: #Eosinphils 0.1 thou/uL (0.0-0.7); #Lymphocytes 2.3 thou/uL (1.20-3.40); #Monocytes 0.8 thou/uL (0.11-0.59); #Neutrophils 12.6 thou/uL (1.40-6.50); %Basophils 0.2 % (0.0-1.0); %Eosinophils 0.5 % (0.0-10.0); %Lymphocytes 14.3 % (21.0-51.0); %Monocytes 5.1 % (0.0-10.0); %Neutrophils 79.9 % (42.0-75.0); Hemoglobin 15.7 g/dL (14.0-18.0); Mean Corpuscular Hemoglobin 28.5 pg (27.0-31.0); Mean Corpuscular Volume 89.2 fL (78.0-98.0); Mean Platelet Volume 6.6 fL (7.4-10.4); Platelet Count 512 thou/uL (130-400); RBC Distribution Width 13.1 % (11.5-14.5); White Blood Cell (WBC) Count 15.8 thou/uL (4.8-10.8)
[2021-07-20] MEDS: Lantus 1000 UNITS/10 ML VIAL SC SCH ×2 (08:24→21:24)
[2021-07-20] MEDS: Polyethylene Glycol 3350 17 GM Packet PO SCH ×2 (08:34→21:22)
[2021-07-20] MEDS: Zinc Sulfate 220 MG CAP PO SCH (08:34)
[2021-07-20] MEDS: ALPRAZolam 0.25 MG TAB PO PRN ×2 (08:34→21:21)
[2021-07-20] MEDS: Enoxaparin Sodium 40 MG/0.4 ML SYRINGE SC SCH (08:34)
[2021-07-20] MEDS: Metoprolol Tartrate 25 MG TAB PO SCH ×2 (08:34→21:21)
[2021-07-20] MEDS: Famotidine 20 MG TAB PO SCH ×2 (08:34→21:21)
[2021-07-20] MEDS: Dexamethasone 4 mg/ml Vial SLOW IVP SCH (08:34)
[2021-07-20] MEDS: Lidocaine 5% Patch TD SCH (08:35)
[2021-07-20] MEDS: HumaLOG 300 UNITS/3 ML VIAL SC PRN (17:31)
[2021-07-20] MEDS: Benzonatate 100 MG CAP PO PRN (21:21)
[2021-07-21] MEDS: Albuterol 200 PUFF (6.7GM INHALER) INH SCH ×4 (02:36→19:04)
[2021-07-21] MEDS: Lantus 1000 UNITS/10 ML VIAL SC SCH ×2 (08:09→21:08)
[2021-07-21] MEDS: Famotidine 20 MG TAB PO SCH ×2 (08:14→21:06)
[2021-07-21] MEDS: ALPRAZolam 0.25 MG TAB PO PRN (08:15)
[2021-07-21] MEDS: Enoxaparin Sodium 40 MG/0.4 ML SYRINGE SC SCH (08:15)
[2021-07-21] MEDS: Metoprolol Tartrate 25 MG TAB PO SCH ×2 (08:15→21:06)
[2021-07-21] MEDS: Zinc Sulfate 220 MG CAP PO SCH (08:15)
[2021-07-21] MEDS: Dexamethasone 4 mg/ml Vial SLOW IVP SCH (08:15)
[2021-07-21] MEDS: Lidocaine 5% Patch TD SCH (08:15)
[2021-07-21] MEDS: Polyethylene Glycol 3350 17 GM Packet PO SCH ×3 (08:16→21:06)
[2021-07-21] MEDS: HumaLOG 300 UNITS/3 ML VIAL SC PRN ×2 (11:34→17:23)
[2021-07-21] MEDS: HYDROcodone/Acetaminophen 5/325 mg Tablet PO PRN (17:29)
[2021-07-22] MEDS: Albuterol 200 PUFF (6.7GM INHALER) INH SCH ×4 (02:24→17:57)
[2021-07-22 04:08] LABS: #Eosinphils 0.1 thou/uL (0.0-0.7); #Lymphocytes 1.6 thou/uL (1.20-3.40); #Monocytes 0.7 thou/uL (0.11-0.59); #Neutrophils 13.8 thou/uL (1.40-6.50); %Basophils 0.2 % (0.0-1.0); %Eosinophils 0.7 % (0.0-10.0); %Monocytes 4.1 % (0.0-10.0); %Neutrophils 84.9 % (42.0-75.0); Hemoglobin 15.1 g/dL (14.0-18.0); Mean Corpuscular Hemoglobin 28.4 pg (27.0-31.0); Mean Platelet Volume 6.6 fL (7.4-10.4); Platelet Count 449 thou/uL (130-400); RBC Distribution Width 13.2 % (11.5-14.5); Red Blood Cell (RBC) Count 5.32 mill/uL (4.70-6.10); White Blood Cell (WBC) Count 16.3 thou/uL (4.8-10.8)
[2021-07-22 04:31] LABS: Anion Gap 12 mmol/L (10-20); BUN (Urea Nitrogen) 36 mg/dL (8.4-25.7); Calc. Creatinine Clearance 123 mL/min (70-130); Calcium 8.9 mg/dL (7.8-10.44); Carbon Dioxide 27 mmol/L (22-29); Chloride 103 mmol/L (98-107); Glucose 173 mg/dL (70-105); Potassium 4.1 mmol/L (3.5-5.1); Sodium 138 mmol/L (136-145)
[2021-07-22] MEDS: Dexamethasone 4 mg/ml Vial SLOW IVP SCH (07:51)
[2021-07-22] MEDS: Metoprolol Tartrate 25 MG TAB PO SCH ×2 (07:52→21:20)
[2021-07-22] MEDS: ALPRAZolam 0.25 MG TAB PO PRN (07:52)
[2021-07-22] MEDS: Zinc Sulfate 220 MG CAP PO SCH (07:52)
[2021-07-22] MEDS: Famotidine 20 MG TAB PO SCH ×2 (07:52→21:18)
[2021-07-22] MEDS: Enoxaparin Sodium 40 MG/0.4 ML SYRINGE SC SCH (07:52)
[2021-07-22] MEDS: Polyethylene Glycol 3350 17 GM Packet PO SCH (07:53)
[2021-07-22] MEDS: Lidocaine 5% Patch TD SCH (07:53)
[2021-07-22] MEDS: Lantus 1000 UNITS/10 ML VIAL SC SCH ×2 (07:56→21:20)
[2021-07-22] MEDS ORDERED: Mag-Al Plus 1200 MG/1200 MG/120 MG/30 ML UDCUP PO PRN (08:44)
[2021-07-22] MEDS: HumaLOG 300 UNITS/3 ML VIAL SC PRN ×3 (11:53→21:35)
[2021-07-22] MEDS: HYDROcodone/Acetaminophen 5/325 mg Tablet PO PRN (11:55)
[2021-07-22] MEDS ORDERED: Polyethylene Glycol 3350 17 GM Packet PO PRN (14:55)
[2021-07-22] MEDS: Benzonatate 100 MG CAP PO PRN (17:44)
[2021-07-22] MEDS: guaiFENesin/Codeine 200 mg/20 mg 10 ml Cup PO PRN (17:44)
[2021-07-23] MEDS: Albuterol 200 PUFF (6.7GM INHALER) INH SCH ×4 (00:07→19:14)
[2021-07-23] MEDS: Enoxaparin Sodium 40 MG/0.4 ML SYRINGE SC SCH (08:59)
[2021-07-23] MEDS: Metoprolol Tartrate 25 MG TAB PO SCH ×2 (09:00→20:09)
[2021-07-23] MEDS: Famotidine 20 MG TAB PO SCH ×2 (09:00→20:09)
[2021-07-23] MEDS: Dexamethasone 4 mg/ml Vial SLOW IVP SCH (09:00)
[2021-07-23] MEDS: Zinc Sulfate 220 MG CAP PO SCH (09:00)
[2021-07-23] MEDS: Lantus 1000 UNITS/10 ML VIAL SC SCH ×2 (09:02→21:00)
[2021-07-23] MEDS: Lidocaine 5% Patch TD SCH (09:03)
[2021-07-23] MEDS: HumaLOG 300 UNITS/3 ML VIAL SC PRN (16:30)
[2021-07-23] MEDS: HYDROcodone/Acetaminophen 5/325 mg Tablet PO PRN (20:09)
[2021-07-24] MEDS: Albuterol 200 PUFF (6.7GM INHALER) INH SCH ×4 (04:18→18:28)
[2021-07-24] MEDS: Enoxaparin Sodium 40 MG/0.4 ML SYRINGE SC SCH (08:19)
[2021-07-24] MEDS: Lantus 1000 UNITS/10 ML VIAL SC SCH ×2 (08:20→21:22)
[2021-07-24] MEDS: Dexamethasone 4 mg/ml Vial SLOW IVP SCH (08:20)
[2021-07-24] MEDS: Famotidine 20 MG TAB PO SCH ×2 (08:20→21:21)
[2021-07-24] MEDS: Zinc Sulfate 220 MG CAP PO SCH (08:21)
[2021-07-24] MEDS: Metoprolol Tartrate 25 MG TAB PO SCH ×2 (08:21→21:21)
[2021-07-24] MEDS: Lidocaine 5% Patch TD SCH (08:21)
[2021-07-24] MEDS: Acetaminophen 325 MG TAB PO PRN ×2 (08:21→16:59)
[2021-07-24] MEDS: HumaLOG 300 UNITS/3 ML VIAL SC PRN ×2 (11:53→16:59)
[2021-07-24] MEDS: Transdermal Patch Removal TOP SCH (21:20)
[2021-07-25] MEDS: Albuterol 200 PUFF (6.7GM INHALER) INH SCH ×4 (01:08→21:00)
[2021-07-25] MEDS ORDERED: Morphine 4 MG/ML VIAL ONE (08:44)
[2021-07-25] MEDS ORDERED: Morphine 2 MG/ML VIAL SLOW IVP SCH (08:45)
[2021-07-25] MEDS ORDERED: Lorazepam 2 MG/ML VIAL ONE (08:58)
[2021-07-25] MEDS ORDERED: Lorazepam 2 MG/ML VIAL SLOW IVP SCH (09:15)
[2021-07-25 09:54] LABS: Actual Bicarbonate (HCO3a) 28.1 mEq/L (22-28); Base Excess (BEa) 2.8 mEq/L (-2.0 to +3.0); CO2 Tension 45.2 mmHg (35.0-45.0); Calcium, Ionized (arterial) 1.21 mmol/L (1.12-1.30); Carboxyhemoglobin (COHb) 0.9 gm% (0.0-3.0); Hemoglobin (Hb) 16.9 g/dL (14.0-18.0); O2 Tension (PaO2), arterial 44.5 mmHg (80.0-100.0); Potassium - ABG Lab 3.79 mmol/L (3.70-5.30); Puncture Site RRA; pH, Arterial 7.41 (7.35-7.45)
[2021-07-25] MEDS: Enoxaparin Sodium 40 MG/0.4 ML SYRINGE SC SCH (11:03)
[2021-07-25] MEDS: Lidocaine 5% Patch TD SCH (11:04)
[2021-07-25] MEDS: Dexamethasone 4 mg/ml Vial SLOW IVP SCH (11:04)
[2021-07-25] MEDS: Zinc Sulfate 220 MG CAP PO SCH (11:04)
[2021-07-25] MEDS: Famotidine 20 MG TAB PO SCH ×2 (11:04→21:05)
[2021-07-25] MEDS: Metoprolol Tartrate 25 MG TAB PO SCH ×2 (11:04→21:06)
[2021-07-25] MEDS: Lantus 1000 UNITS/10 ML VIAL SC SCH ×2 (11:07→21:05)
[2021-07-25 12:04] LABS: Hemoglobin 16.9 g/dL (14.0-18.0); Mean Corpuscular HGB CONC 31.2 g/dL (32.0-36.0); Mean Corpuscular Hemoglobin 27.9 pg (27.0-31.0); Mean Corpuscular Volume 89.4 fL (78.0-98.0); Mean Platelet Volume 7.9 fL (7.4-10.4); Platelet Count 344 thou/uL (130-400); RBC Distribution Width 13.7 % (11.5-14.5); Red Blood Cell (RBC) Count 6.04 mill/uL (4.70-6.10)
[2021-07-25 12:22] LABS: ALT (SGPT) 76 U/L (8-55); AST (SGOT) 46 U/L (5-34); Albumin 3.4 g/dL (3.5-5.0); Alkaline Phosphatase 119 U/L (40-110); Bilirubin, Direct 0.3 mg/dL (0.1-0.3); Bilirubin, Total 0.8 mg/dL (0.2-1.2); Protein, Total 7.5 g/dL (6.0-8.3)
[2021-07-25 12:28] LABS: Sodium 140 mmol/L (136-145)
[2021-07-25 12:29] LABS: Anion Gap 15 mmol/L (10-20); BUN (Urea Nitrogen) 30 mg/dL (8.4-25.7); CRP (Inflammatory) 1.32 mg/dL (= or < 0.5); Calc. Creatinine Clearance 111 mL/min (70-130); Calcium 9.2 mg/dL (7.8-10.44); Carbon Dioxide 28 mmol/L (22-29); Chloride 101 mmol/L (98-107); Glucose 124 mg/dL (70-105); Potassium 4.4 mmol/L (3.5-5.1)
[2021-07-25 12:33] LABS: Band 5 % (5-11); Lymphocytes 6 % (21-51); MDiff Complete? YES; Monocytes 7 % (0-10); Neutrophil 82 % (42-75); Platelet Morphology Comment Appears Adequate; RBC Morphology Normal
[2021-07-25] MEDS: HumaLOG 300 UNITS/3 ML VIAL SC PRN (21:05)
[2021-07-25] MEDS: Transdermal Patch Removal TOP SCH (21:07)
[2021-07-26] MEDS: Albuterol 200 PUFF (6.7GM INHALER) INH SCH ×5 (00:33→23:04)
[2021-07-26] MEDS ORDERED: Ketorolac Tromethamine 30 MG/ML VIAL IVP SCH (10:00)
[2021-07-26] MEDS: Zinc Sulfate 220 MG CAP PO SCH (10:11)
[2021-07-26] MEDS: Enoxaparin Sodium 40 MG/0.4 ML SYRINGE SC SCH (10:11)
[2021-07-26] MEDS: Dexamethasone 4 mg/ml Vial SLOW IVP SCH (10:11)
[2021-07-26] MEDS: Famotidine 20 MG TAB PO SCH ×2 (10:11→20:25)
[2021-07-26] MEDS: Metoprolol Tartrate 25 MG TAB PO SCH ×2 (10:12→20:25)
[2021-07-26] MEDS: Lidocaine 5% Patch TD SCH (10:12)
[2021-07-26] MEDS: Lantus 1000 UNITS/10 ML VIAL SC SCH ×2 (10:12→20:26)
[2021-07-26] MEDS: HumaLOG 300 UNITS/3 ML VIAL SC PRN ×2 (17:31→20:26)
[2021-07-26] MEDS: ALPRAZolam 0.25 MG TAB PO PRN (20:25)
[2021-07-26] MEDS: Acetaminophen 325 MG TAB PO PRN (20:25)
[2021-07-26] MEDS: Transdermal Patch Removal TOP SCH (20:27)
[2021-07-27] MEDS: Albuterol 200 PUFF (6.7GM INHALER) INH SCH ×3 (07:28→19:00)
[2021-07-27] MEDS: ALPRAZolam 0.25 MG TAB PO PRN ×2 (08:55→18:02)
[2021-07-27] MEDS: Dexamethasone 4 mg/ml Vial SLOW IVP SCH (09:45)
[2021-07-27] MEDS: Zinc Sulfate 220 MG CAP PO SCH (09:45)
[2021-07-27] MEDS: Enoxaparin Sodium 40 MG/0.4 ML SYRINGE SC SCH (09:45)
[2021-07-27] MEDS: Lidocaine 5% Patch TD SCH (09:45)
[2021-07-27] MEDS: Metoprolol Tartrate 25 MG TAB PO SCH ×2 (09:45→21:07)
[2021-07-27] MEDS: Lantus 1000 UNITS/10 ML VIAL SC SCH ×2 (09:46→21:07)
[2021-07-27] MEDS: Famotidine 20 MG TAB PO SCH ×2 (09:59→21:07)
[2021-07-27] MEDS ORDERED: Ketorolac Tromethamine 30 MG/ML VIAL IVP PRN (15:31)
[2021-07-27] MEDS: Benzonatate 100 MG CAP PO PRN (17:04)
[2021-07-27] MEDS: HumaLOG 300 UNITS/3 ML VIAL SC PRN ×2 (17:47→21:08)
[2021-07-27] MEDS: Transdermal Patch Removal TOP SCH (21:10)
[2021-07-28] MEDS: Albuterol 200 PUFF (6.7GM INHALER) INH SCH ×4 (00:22→20:00)
[2021-07-28] MEDS: ALPRAZolam 0.25 MG TAB PO PRN ×2 (04:02→21:00)
[2021-07-28] MEDS: Famotidine 20 MG TAB PO SCH ×2 (08:00→21:00)
[2021-07-28] MEDS: Zinc Sulfate 220 MG CAP PO SCH (08:05)
[2021-07-28] MEDS: Metoprolol Tartrate 25 MG TAB PO SCH ×2 (08:05→21:00)
[2021-07-28] MEDS: Enoxaparin Sodium 40 MG/0.4 ML SYRINGE SC SCH (08:05)
[2021-07-28] MEDS: Dexamethasone 4 mg/ml Vial SLOW IVP SCH (08:05)
[2021-07-28] MEDS: Lantus 1000 UNITS/10 ML VIAL SC SCH ×2 (08:06→21:01)
[2021-07-28] MEDS: Lidocaine 5% Patch TD SCH (09:35)
[2021-07-28] MEDS ORDERED: predniSONE 20 MG TAB PO SCH (11:00)
[2021-07-28 13:06] VITALS: BMI 22.7
[2021-07-28] MEDS: HumaLOG 300 UNITS/3 ML VIAL SC PRN ×2 (13:19→17:41)
[2021-07-28] MEDS: Mometasone 200 MCG/Formoterol 5 MCG 120 PUFF INHALER INH SCH (19:00)
[2021-07-28] MEDS: Acetaminophen 325 MG TAB PO PRN (21:00)
[2021-07-28] MEDS: Transdermal Patch Removal TOP SCH (21:01)
[2021-07-29] MEDS: Albuterol 200 PUFF (6.7GM INHALER) INH SCH ×3 (01:00→16:23)
[2021-07-29] MEDS: Mometasone 200 MCG/Formoterol 5 MCG 120 PUFF INHALER INH SCH (05:37)
[2021-07-29] MEDS: HumaLOG 300 UNITS/3 ML VIAL SC PRN ×2 (05:37→12:48)
[2021-07-29] MEDS: Enoxaparin Sodium 40 MG/0.4 ML SYRINGE SC SCH (08:00)
[2021-07-29] MEDS: Metoprolol Tartrate 25 MG TAB PO SCH (08:00)
[2021-07-29] MEDS: Zinc Sulfate 220 MG CAP PO SCH (08:00)
[2021-07-29] MEDS: Famotidine 20 MG TAB PO SCH (08:00)
[2021-07-29] MEDS: Lidocaine 5% Patch TD SCH (08:00)
[2021-07-29] MEDS ORDERED: predniSONE 20 MG TAB PO SCH (08:00)
[2021-07-29] MEDS: Lantus 1000 UNITS/10 ML VIAL SC SCH (08:01)
[2021-07-29] MEDS ORDERED: Sulfameth/Trimethoprim DS 800-160mg TAB PO SCH (09:00)
[2021-07-29 17:18] VITALS: BP 132/78; TEMP 97.8
== END 2021-07-29 17:48 | disposition home or self-care (01) | DRG 177 ==
LOC: ERS 23:07 → ERHOLD 07-03 00:59 → T4-B 07-03 02:59 → IMCU/EMU 07-07 12:49 → T4-B 07-23 18:52 → IMCU/EMU 07-25 10:21 → T4-B 07-27 18:35
PROVIDERS: ADMIT Internal Medicine; ATTEND Internal Medicine
PROC: 8E0ZXY6 Isolation (ICD-10-PCS; principal; 2021-07-03)
PROC: 3E0333Z Introduction of Anti-inflammatory into Peripheral Vein, Percutaneous Approach (ICD-10-PCS; 2021-07-03)
PROC: XW0DXM6 Introduction of Baricitinib into Mouth and Pharynx, External Approach, New Technology Group 6 (ICD-10-PCS; 2021-07-06)
DX: U07.1 COVID-19 (principal); J12.82 Pneumonia due to coronavirus disease 2019; J96.01 Acute respiratory failure with hypoxia; E22.2 Syndrome of inappropriate secretion of antidiuretic hormone; I47.1 Supraventricular tachycardia; E11.65 Type 2 diabetes mellitus with hyperglycemia; M94.0 Chondrocostal junction syndrome [Tietze]; S40.022A Contusion of left upper arm, initial encounter; X58.XXXA Exposure to other specified factors, initial encounter; F41.9 Anxiety disorder, unspecified; Z87.891 Personal history of nicotine dependence; Z79.51 Long term (current) use of inhaled steroids; Z79.899 Other long term (current) drug therapy
CPT/HCPCS: 36415; 36416; 36600; 71045; 80048; 80053; 80076; 80202; 81001; 82533; 82570; 82805; 83036; 83605; 83880; 83930; 83935; 84145; 84300; 84443; 84484; 84550; 85025; 85379; 85652; 86140; 87040; 93005; 93010; 93306; 94660; 96374; J1100; J1650; J1815; J1885; J2060; J2270; J2543; J3370; J3490; J7050; J7512